=== PATIENT | female | born 1980 | race African-American/Black ===

== ENCOUNTER 2020-01-12 15:15 | Emergency (ER) | payer MEDICAID ==
[~2020-01-12] VITALS: Ht 170.2 cm; Wt 46.0 kg
[~2020-01-12 15:15] MED LIST: NORCO
[2020-01-12 16:07] LABS: HEMATOCRIT. 29.5 % (36.0-48.0); HEMOGLOBIN. 10.1 g/dL (12.0-16.0); MEAN CORPUSCULAR HEMOGLOBIN 32.9 pg (28.0-32.0); MEAN PLATELET VOLUME 7.9 fl (7.4-10.4); PLATELET 179 x1000/uL (130-400); RED BLOOD CELL COUNT 3.07 mill/uL (4.2-5.4); RED CELL DISTRIBUTION WIDTH 13.3 % (11.6-14.6)
[2020-01-12 16:11] LABS: CHLORIDE 104 mEq/L (98-107)
[2020-01-12 16:13] LABS: HCG SCREEN NEGATIVE
[2020-01-12 16:14] LABS: INR 1.2; PROTHROMBIN TIME 12.6 sec (9.6-11.0)
[2020-01-12 16:40] LABS: PLATELET ESTIMATE NORMAL
[2020-01-12 18:24] LABS: CLARITY URINE CLOUDY (CLEAR); COLOR URINE YELLOW (YELLOW); KETONES URINE NEGATIVE (NEGATIVE); LEUKOCYTE ESTERASE URINE 2+ (NEGATIVE); NITRITE URINE NEGATIVE (NEGATIVE); OCCULT BLOOD URINE NEGATIVE (NEGATIVE); PH URINE 6.5 (4.5-8.0); PROTEIN URINE 1+ (NEGATIVE); SPECIFIC GRAVITY URINE 1.013 (1.005-1.030)
[2020-01-12] MEDS ORDERED: FAMOTIDINE 20MG TABLET PO ONE (19:30)
[2020-01-12 22:15] VITALS: BP 115/75
== END 2020-01-12 22:11 | disposition home or self-care (01) ==
LOC: ER 15:15
DX: R10.30 Lower abdominal pain, unspecified (principal); N39.0 Urinary tract infection, site not specified; Z98.890 Other specified postprocedural states
CPT/HCPCS: 36415; 80053; 81003; 84703; 85025; 99283